=== PATIENT | male | born 1970 | race Caucasian/White ===

== ENCOUNTER 2017-12-05 17:54 | Emergency (ER) | payer MEDICAID ==
[~2017-12-05] VITALS: Ht 185.4 cm; Wt 76.6 kg
[2017-12-05 17:56] VITALS: BP 131/90
[2017-12-08] MEDS ORDERED: ACET325T14 PO (12:26)
[2017-12-08] MEDS ORDERED: SULF-169 PO (12:26)
== END 2017-12-05 20:05 | disposition home or self-care (01) ==
LOC: ED 19:45
DX: L03.211 Cellulitis of face (principal)
CPT/HCPCS: 99281; 99283

== ENCOUNTER 2017-12-06 09:07 | Emergency (ER) | payer MEDICAID ==
[~2017-12-06] VITALS: Ht 185.4 cm; Wt 75.6 kg
[2017-12-06 09:10] VITALS: BP 130/76
[2017-12-06] MEDS ORDERED: LIDOCAINE-MPF 2% ,5ML ONE (09:29)
[2017-12-06] MEDS ORDERED: LIDOCAINE 2%, 20ML SQ ONE (09:30)
[2017-12-06] MEDS ORDERED: CEFTRIAXONE 1,000 MG ONE (09:49)
[2017-12-06] MEDS ORDERED: CEFTRIAXONE 1,000 MG IM ONE (10:00)
[2017-12-08] MEDS ORDERED: SULF-169 PO (12:26)
[2017-12-08] MEDS ORDERED: ACET325T14 PO (12:26)
== END 2017-12-06 10:06 | disposition home or self-care (01) ==
LOC: ED 09:27
DX: L02.01 Cutaneous abscess of face (principal)
CPT/HCPCS: 10060; 99283